=== PATIENT | male | born 1955 | race Caucasian/White ===

== ENCOUNTER 2018-01-14 10:18 | Emergency (ER) | payer BC, OTHER ==
[~2018-01-14] VITALS: Ht 170.2 cm; Wt 78.9 kg
[2018-01-14 10:24] VITALS: TEMP 36.5; Ht 170.2 cm; Wt 78.9 kg
[2018-01-14] MEDS ORDERED: ATV1 PO (10:51)
[2018-01-14] MEDS ORDERED: ATOR-22 PO (10:51)
[2018-01-14] MEDS ORDERED: RQP25 PO (10:51)
[2018-01-14] MEDS ORDERED: ZLF/100 PO (10:51)
[2018-01-14] MEDS ORDERED: LISI-461 PO (10:51)
--- NOTE | 2018-01-14 11:05 | DIAGNOSTIC IMAGING REPORT ---
RIGHT CLAVICLE 2 VIEWS CLINICAL HISTORY: Clavicular pain. Overuse injury. FINDINGS: 2 views of the right clavicle are obtained. No prior studies are available for comparison at the time of dictation. The skeletal structures are well mineralized. No clavicular fracture is seen. Mild productive degenerative change is noted at the acromioclavicular joint which appears preserved. There is asymmetric elevation of the right clavicular head as compared to the left at the sternoclavicular joint which is present on both views. The overlying soft tissues are within normal limits. Imaged upper lobe lung parenchyma appears clear. IMPRESSION: 1. There is no radiographic evidence of right clavicular fracture. 2. There is mild apparent superior subluxation of the right clavicular head at the sternoclavicular joint which is asymmetric to the left. Correlate clinically for evidence of dislocation. Electronically signed by: Napoleon Garcia M.D. 01/14/2018 11:03 AM Dictated Date/Time: 01/14/2018 11:00 AM
--- NOTE | 2018-01-14 12:13 | DIAGNOSTIC IMAGING REPORT ---
(CHEST) THORAX WITHOUT CLINICAL HISTORY: Sternoclavicular pain. Possible dislocation. COMPARISON STUDY: Conventional radiograph of the right clavicle dated 01/14/2018 CT DOSE: 588.00 mGycm TECHNIQUE: CT of the thorax was performed from the thoracic inlet to the lung bases. Images are reviewed in the axial, sagittal, and coronal planes. IV contrast was not administered for this examination. A dose lowering technique was utilized adhering to the principles of ALARA. FINDINGS: Thyroid: Imaged portions of the thyroid gland are normal in appearance. Thoracic aorta: The thoracic aorta is normal in course and caliber, noting standard 3 vessel arch anatomy. Heart: The heart is normal in size and configuration, without pericardial effusion. Lungs and pleural spaces: There are dependent atelectatic changes present. There are no pleural effusions. There is no pneumothorax. There is no focal pulmonary consolidation. Mediastinum: There is no evidence of pathologic adenopathy. Aniyah: There is no evidence of pathologic adenopathy given the limitations of a noncontrast study Axilla: There is no evidence of pathologic adenopathy Upper abdomen: There is a moderate hiatal hernia Skeletal structures: There is no evidence of sternoclavicular dislocation. There are sclerotic changes involving the medial right clavicle with subchondral cystic change. This statistically on a degenerative basis. IMPRESSION: 1. No acute intrathoracic findings 2. No evidence of sternoclavicular joint dislocation 3. Sclerotic changes involving the medial right clavicle with subchondral cystic change. This is likely on a degenerative basis Electronically signed by: Tai Sloan M.D. 01/14/2018 12:12 PM Dictated Date/Time: 01/14/2018 12:07 PM
[2018-01-14 12:24] VITALS: BP 126/76; PULSE 81; O2SAT 99
--- NOTE | 2018-01-14 12:58 | EMERGENCY ROOM VISIT NOTE ---
History First contact with patient: 10:36 Chief Complaint: NECK INJURY Stated Complaint: NECK BONE INJURY History of Present Illness The patient is a 62 year old male who presents to the Emergency Room with complaints of right collarbone pain after digging holes to plant trees in his yard yesterday. The patient reports that he was using a pick and shovel. He reports that the area was extremely nereida. He reports sudden onset of pain. He reports that the pain is worsened when he reaches overhead he denies any chest pain or shortness of breath. He also has noticed some swelling over the upper chest/neck region, and rates his discomfort a 5 out of 10. Review of Systems 10 system review was performed and was negative except for pertinent positives and negatives as indicated in history of present illness Past Medical/Surgical History Medical Problems: (1) Heart disease Family History Hypertension Social History Smoking Status: Never Smoker Alcohol Use: none Drug Use: none Marital Status: single Housing Status: lives alone Occupation Status: employed Current/Historical Medications Scheduled Atorvastatin (Lipitor), 20 MG PO DAILY Lisinopril (Lisinopril), 10 MG PO DAILY Ropinirole HCl (Ropinirole HCl), 0.25 MG PO DAILY Sertraline HCl (Sertraline HCl), 100 MG PO DAILY Scheduled PRN Lorazepam (Lorazepam), 1 MG PO TID PRN for Anxiety Physical Exam Vital Signs Date Time Temp Pulse Resp B/P (MAP) Pulse Ox O2 Delivery O2 Flow Rate FiO2 01/14/18 12:24 81 20 126/76 99 Room Air 01/14/18 10:24 36.5 86 20 131/81 98 Room Air Physical Exam CONSTITUTIONAL: Healthy and well nourished. Alert and oriented X 3 with positive affect. Patient does not appear in any acute distress. HEENT: Normocephalic, atraumatic. Pupils equal, round and reactive. NECK: Full active range of motion without discomfort. MUSCULOSKELETAL: Examination shows an area of edema without ecchymosis adjacent to the right sternoclavicular joint. The patient has no tenderness to palpation through the middle or lateral clavicle region, acromioclavicular joint or shoulder region. Gentle internal and external rotation of the shoulder does not cause any discomfort. Patient has no other tenderness to palpation through the anterior chest wall. The breathing does not worsen his discomfort. INTEGUMENTARY: No rash or other significant dermatologic conditions noted. NEUROLOGIC: No focal neurologic deficits noted. Medical Decision & Procedures ER Provider Diagnostic Interpretation: X-rays of the right clavicle does not show any obvious fractures. There is a question for possible superior subluxation/dislocation of the clavicle head with relation to the sternoclavicular joint. Radiologist report is as follows: RIGHT CLAVICLE 2 VIEWS CLINICAL HISTORY: Clavicular pain. Overuse injury. FINDINGS: 2 views of the right clavicle are obtained. No prior studies are available for comparison at the time of dictation. The skeletal structures are well mineralized. No clavicular fracture is seen. Mild productive degenerative change is noted at the acromioclavicular joint which appears preserved. There is asymmetric elevation of the right clavicular head as compared to the left at the sternoclavicular joint which is present on both views. The overlying soft tissues are within normal limits. Imaged upper lobe lung parenchyma appears clear. IMPRESSION: 1. There is no radiographic evidence of right clavicular fracture. 2. There is mild apparent superior subluxation of the right clavicular head at the sternoclavicular joint which is asymmetric to the left. Correlate clinically for evidence of dislocation. Noncontrast CT of the chest does not show any sternoclavicular dislocation or other acute findings. Radiologist report is as follows: (CHEST) THORAX WITHOUT CLINICAL HISTORY: Sternoclavicular pain. Possible dislocation. COMPARISON STUDY: Conventional radiograph of the right clavicle dated 01/14/2018 CT DOSE: 588.00 mGycm TECHNIQUE: CT of the thorax was performed from the thoracic inlet to the lung bases. Images are reviewed in the axial, sagittal, and coronal planes. IV contrast was not administered for this examination. A dose lowering technique was utilized adhering to the principles of ALARA. FINDINGS: Thyroid: Imaged portions of the thyroid gland are normal in appearance. Thoracic aorta: The thoracic aorta is normal in course and caliber, noting standard 3 vessel arch anatomy. Heart: The heart is normal in size and configuration, without pericardial effusion. Lungs and pleural spaces: There are dependent atelectatic changes present. There are no pleural effusions. There is no pneumothorax. There is no focal pulmonary consolidation. Mediastinum: There is no evidence of pathologic adenopathy. Aniyah: There is no evidence of pathologic adenopathy given the limitations of a noncontrast study Axilla: There is no evidence of pathologic adenopathy Upper abdomen: There is a moderate hiatal hernia Skeletal structures: There is no evidence of sternoclavicular dislocation. There are sclerotic changes involving the medial right clavicle with subchondral cystic change. This statistically on a degenerative basis. IMPRESSION: 1. No acute intrathoracic findings 2. No evidence of sternoclavicular joint dislocation 3. Sclerotic changes involving the medial right clavicle with subchondral cystic change. This is likely on a degenerative basis ED Course Patient history and physical exam were performed. Nurse's notes were reviewed. Vital signs were reviewed and were normal. The patient refused any analgesics on initial exam. X-rays of the right clavicle is suggestive of a right sternoclavicular subluxation/dislocation of the clavicle head. I did discuss the case further with Dr. Stein, orthopedic surgeon cleaning professional, and his physician assistants who recommended a chest CT for further evaluation. Noncontrast CT of the chest was performed to show no evidence for sternoclavicular dislocation. Findings were discussed with the patient. He was encouraged to intermittently apply ice to the region. Ibuprofen and Tylenol as needed for pain. The patient was encouraged to avoid heavy labor for the next 4 weeks. He was provided contact information for orthopedics for further follow-up as needed. He was instructed to return to the emergency department for any progressively worsening pain, shortness of breath, chest pain or other concerns. The patient was happy with plan of care, voiced understanding of all discharge instructions, and rated his discomfort a 3 out of 10 at the time of discharge. Medical Decision Medication Reconcilliation Current Medication List: was personally reviewed by me Blood Pressure Screening Patient's blood pressure: Normal blood pressure Impression Primary Impression: Chest wall injury Departure Information Referrals Fantasma Alaniz M.D. (PCP) Patient Instructions My [facility] Problem Qualifiers Primary Impression: Chest wall injury Encounter type: initial encounter Qualified Codes: S29.9XXA - Unspecified injury of thorax, initial encounter
== END 2018-01-14 12:40 | disposition home or self-care (01) ==
LOC: C.EDB 10:19 → C.EDD 12:40
DX: S29.9XXA Unspecified injury of thorax, initial encounter (principal); X58.XXXA Exposure to other specified factors, initial encounter; Y93.H1 Activity, digging, shoveling and raking; Y92.096 Garden or yard of other non-institutional residence as the place of occurrence of the external cause; Z82.49 Family history of ischemic heart disease and other diseases of the circulatory system; Z79.899 Other long term (current) drug therapy